=== PATIENT | male | born 1945 | race Caucasian/White ===

== ENCOUNTER → 2020-05-02 | Outpatient (CLI) | payer MEDICARE ==
--- NOTE | 2020-05-02 14:08 | REP ---
INDICATION: CHEST. COMPARISON: No comparison study. TECHNIQUE: Two views.. FINDINGS: The lungs are hyperinflated with flattening of the hemidiaphragms and increase in the AP diameter of the chest. This consistent with COPD. There is old post traumatic or post surgical deformity of the left 6th rib. There are mild degenerative changes in the thoracic spine and aorta. Heart size is normal. Pulmonary vasculature is not increased. No infiltrate is seen. Nipple silhouettes are noted bilaterally on the frontal view. No mass lesion or significant pulmonary nodule is apparent. IMPRESSION: Hyperinflation consistent with COPD. No acute cardiopulmonary disease seen.. <Electronically signed by Iglesia Musa > 05/02/20 [id number]
== END ==
LOC: M ADAMS 10:37
PROVIDERS: ATTEND Family Medicine
DX: J43.8 Other emphysema (principal); E88.01 Alpha-1-antitrypsin deficiency; G62.89 Other specified polyneuropathies; E78.5 Hyperlipidemia, unspecified; Z12.5 Encounter for screening for malignant neoplasm of prostate; Z79.899 Other long term (current) drug therapy
CPT/HCPCS: 71046; 80053; 80061; 82607; 82746; 83036; 84439; 84443; 85027; G0103

== ENCOUNTER → 2020-05-02 | Outpatient (REF) | payer MEDICARE ==
[2020-05-02 12:45] LABS: HEMATOCRIT 49.2 % (42.0-52.0); HEMOGLOBIN 15.9 g/dl (13.5-17.5); MEAN CORPUSCULAR HEMOGLOBIN 30.6 pg (27.0-33.0); MEAN CORPUSCULAR HGB CONC 32.3 g/dl (32.0-36.5); MEAN CORPUSCULAR VOLUME 94.6 fl (80.0-96.0); PLATELET COUNT, AUTOMATED 196 10^3/uL (150-450); WHITE BLOOD COUNT 9.4 10^3/uL (4.0-10.0)
[2020-05-02 13:27] LABS: HEMOGLOBIN A1c 5.1 %
[2020-05-02 13:46] LABS: ALT/SGPT 150 U/L (12-78); BILIRUBIN,TOTAL 1.4 MG/DL (0.2-1.0); BLOOD UREA NITROGEN 28 MG/DL (7-18); CALCIUM LEVEL 9.6 MG/DL (8.8-10.2); CARBON DIOXIDE LEVEL 26 MEQ/L (21-32); CHLORIDE LEVEL 105 MEQ/L (98-107); CHOLESTEROL LEVEL 194 MG/DL (<200); CHOLESTEROL RISK RATIO 3.592 (<5); CREATININE FOR GFR 1.24 MG/DL (0.70-1.30); FOLATE 13.4 NG/ML (>5.4); FREE T4 1.26 NG/DL (0.76-1.46); GLOMERULAR FILTRATION RATE > 60.0 (>42); GLUCOSE, FASTING 85 MG/DL (70-100); HDL CHOLESTEROL 54 MG/DL (>40); LDL CHOLESTEROL 116 MG/DL (<100); NON-HDL-C 140 MG/DL; POTASSIUM SERUM 5.3 MEQ/L (3.5-5.1); SODIUM LEVEL 139 MEQ/L (136-145); TRIGLYCERIDES LEVEL 121 MG/DL (<150); VITAMIN B12 LEVEL 536 PG/ML (247-911)
== END ==
LOC: M SFHCADAM 09:52
PROVIDERS: ATTEND Family Medicine
DX: E88.01 Alpha-1-antitrypsin deficiency (principal); G62.89 Other specified polyneuropathies; E78.5 Hyperlipidemia, unspecified; Z12.5 Encounter for screening for malignant neoplasm of prostate; Z79.899 Other long term (current) drug therapy
CPT/HCPCS: 80053; 80061; 82607; 82746; 83036; 84439; 84443; 85027; G0103

== ENCOUNTER → 2020-07-11 | Outpatient (CLI) | payer MEDICARE ==
--- NOTE | 2020-07-11 08:56 | REP ---
INDICATION: OTHER NONSPECIFIC ABNORMAL FINDING COMPARISON: None TECHNIQUE: Axial noncontrast images from the thoracic inlet to the upper abdomen with coronal and sagittal reformations. This CT examination was performed using the following dose reduction techniques: Automated exposure control, adjustment of mA and/or kv according to the patient's size, and use of iterative reconstruction technique. FINDINGS: Advanced COPD/emphysematous changes with scattered scarring and bronchiectasis noted throughout the bilateral lung marshall. There is a small subpleural calcification with surrounding scarring along the posterior right upper lobe which appears relatively chronic. No acute consolidation, suspicious nodule or mass lesion. No effusion. No pneumothorax. No significant adenopathy. Mediastinum demonstrates mild/moderate atherosclerotic changes to the thoracic aorta and coronary arteries without aortic aneurysm or cardiomegaly. No pericardial effusion. Surrounding musculoskeletal structures without acute osseous abnormality. Limited upper abdomen demonstrates normal bilateral adrenal glands. IMPRESSION: Advanced emphysematous disease. No acute mediastinal or pleuroparenchymal process appreciated. <Electronically signed by Kelby Barclay > 07/11/20 [id number]
== END ==
LOC: M RAD 08:06
PROVIDERS: ATTEND Physician Assistant
DX: R91.8 Other nonspecific abnormal finding of lung field (principal)

== ENCOUNTER → 2020-08-08 | Outpatient (CLI) | payer MEDICARE ==
--- NOTE | 2020-08-08 10:02 | REP ---
INDICATION: ABNORMAL RESULTS OF LIVER FUNCTION STUDIES. COMPARISON: None. TECHNIQUE: Right upper quadrant abdominal ultrasound. FINDINGS: There is a 4 mm nonmobile calcification in the gallbladder neck, likely an adherent calculus although calcified polyp is also a possibility. There is no other evidence of cholelithiasis. There is no gallbladder wall thickening or pericholecystic fluid. There is no intrahepatic or extrahepatic biliary duct dilatation. The common biliary duct measures 7 mm in diameter. The hepatic parenchyma is heterogeneous but otherwise unremarkable. This is compatible with hepato steatosis. There are limited views of the pancreatic head and body that are unremarkable. The tail of the pancreas is obscured. The pancreatic duct is not dilated. The right kidney measures 11.1 x 4.8 x 4.5 cm and is normal size. There is no right renal calculus, hydronephrosis, solid mass or cystic mass. There is no abdominal right upper quadrant free fluid. IMPRESSION: There is a nonmobile calcification in the gallbladder neck, likely an adherent calculus versus a calcified polyp, measuring 4 mm in diameter. The tail of the pancreas is obscured. The hepatic parenchyma is heterogeneous compatible with hepato steatosis. There are no hepatic masses or cysts. <Electronically signed by Ivan Meyer > 08/08/20 [id number]
== END ==
LOC: M RAD 09:02
PROVIDERS: ATTEND Family Medicine
DX: R94.5 Abnormal results of liver function studies (principal); K80.20 Calculus of gallbladder without cholecystitis without obstruction

== ENCOUNTER → 2021-01-09 | Outpatient (CLI) | payer MEDICARE ==
--- NOTE | 2021-01-09 11:38 | REP ---
INDICATION: DEGENERATION. COMPARISON: None. TECHNIQUE: Five views of the lumbar spine. FINDINGS: Lumbar vertebral body heights are preserved. There is straightening of the normal lumbar lordosis. Alignment is otherwise normal. There is diffuse degenerative disc disease. Disc space narrowing and some spurring is noted at each lumbar level. This is most pronounced at L5-S1 where there is a vacuum phenomenon, and at L1-2 where there is prominent anterior spurring. Vascular calcifications noted in a normal caliber aorta. Sacrum and SI joints are intact. Pedicles and posterior elements are intact. There is no evidence of spondylolysis or spondylolisthesis. Psoas margins are symmetric. Normal bowel gas pattern. 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 No acute bony abnormality. Straightening. <Electronically signed by Iglesia Musa > 01/09/21 [id number]
== END ==
LOC: M ADAMS 09:12
PROVIDERS: ATTEND Family Medicine
DX: M51.37 Other intervertebral disc degeneration, lumbosacral region (principal)

== ENCOUNTER → 2021-01-15 | Outpatient (CLI) | payer MEDICARE ==
--- NOTE | 2021-01-15 10:34 | REP ---
INDICATION: PERINEURAL CYST. COMPARISON: None. TECHNIQUE: AP pelvis. FINDINGS: There is no acute fracture, dislocation or intrinsic bone disease. There mild symmetrical degenerative changes at the hip joints. IMPRESSION: Mild degenerative changes bilateral hips. <Electronically signed by Ivan Zheng > 01/15/21 [id number]
--- NOTE | 2021-01-15 10:35 | REP ---
INDICATION: PERINEURAL CYST. COMPARISON: None. TECHNIQUE: AP and lateral views sacrum and coccyx. FINDINGS: There is no evidence of acute fracture or dislocation. No intrinsic osseous pathology is seen. There is mild sclerosis along both sacroiliac joints. IMPRESSION: No fracture or dislocation. Mild sclerosis along sacroiliac joints bilaterally. <Electronically signed by Ivan Zheng > 01/15/21 [id number]
== END ==
LOC: M SOG 09:22
PROVIDERS: ATTEND Orthopaedic Surgery
DX: G96.191 Perineural cyst (principal)

== ENCOUNTER → 2021-01-25 | Outpatient (REF) | payer MEDICARE ==
[2021-01-25 12:42] LABS: BLOOD UREA NITROGEN 16 MG/DL (7-18); CALCIUM LEVEL 9.3 MG/DL (8.8-10.2); CARBON DIOXIDE LEVEL 28 MEQ/L (21-32); CHLORIDE LEVEL 106 MEQ/L (98-107); CREATININE FOR GFR 1.07 MG/DL (0.70-1.30); GLOMERULAR FILTRATION RATE > 60.0 (>42); GLUCOSE, FASTING 98 MG/DL (70-100); POTASSIUM SERUM 5.1 MEQ/L (3.5-5.1); SODIUM LEVEL 139 MEQ/L (136-145)
== END ==
LOC: M SFHCADAM 08:34
PROVIDERS: ATTEND Family Medicine
DX: M51.37 Other intervertebral disc degeneration, lumbosacral region (principal)

== ENCOUNTER → 2021-01-26 | Outpatient (CLI) | payer MEDICARE ==
--- NOTE | 2021-01-26 11:23 | REP ---
INDICATION: DISC DEGENERATION. COMPARISON: Comparison is made with outside prior imaging from March 30, 2019. Comparison radiographs of the lumbar spine are from January 09, 2021. TECHNIQUE: Sagittal and axial T1 and T2 weighted scans are included with without fat saturation in the usual fashion. 17 mL of intravenous ProHance is administered and post gadolinium enhanced T1 weighted fat sat sagittal and T1 weighted post tip axial images are acquired. FINDINGS: There is straightening of the normal lumbar lordosis. There are large perineural cysts in the sacrum from the 1st sacral segment to the bottom of the 3rd sacral segment. These are unchanged. In addition, there is evidence of a caudally positioned conus medullaris. The tip of the conus terminates at the L2-3 disc. There is mild fatty infiltration of the filum terminale. Mild tethered cord configuration. These findings are unchanged. Normal caliber aorta. No extra vertebral abnormality is appreciated. Axial and sagittal images taken at L1-2 demonstrate diffuse disc bulging. There is degenerative disc narrowing and decreased signal intensity. Some posterior osteophytic ridging is seen. This indents the ventral margin of the thecal sac but there is no spinal stenosis or foraminal narrowing. At L2-3, there is degenerative disc narrowing again noted with posterior osteophytic ridging. No spinal stenosis or foraminal stenosis is seen. Findings at L2-3 are unchanged. At L3-4, there is diffuse disc bulging and posterior osteophytic ridging as well. This disc is narrowed and shows decreased signal intensity also. No spinal stenosis is seen. No neural foraminal narrowing is observed. At the L4-5 disc level there is a a small central broad-based disc protrusion with posterior osteophytic ridging indenting the thecal sac. No spinal stenosis is seen. There is facet hypertrophy bilaterally. There is no nerve root compression. At L5-S1, there is degenerative disc narrowing and desiccation. Mild posterior osteophytic ridging is seen and and diffuse mild disc bulging is noted. There is minimal neural foraminal narrowing bilaterally at L5-S1. These findings are unchanged. Post gadolinium enhanced images show no suspicious gadolinium enhancement. There is minimal discogenic enhancement. 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 <Electronically signed by Iglesia Musa > 01/26/21 [id number]
== END ==
LOC: M PLARAD 09:18
PROVIDERS: ATTEND Family Medicine
DX: M51.37 Other intervertebral disc degeneration, lumbosacral region (principal)

== ENCOUNTER → 2021-04-11 | Outpatient (REF) | payer MEDICARE ==
[2021-04-11 12:51] LABS: HEMATOCRIT 45.8 % (42.0-52.0); MEAN CORPUSCULAR HGB CONC 32.8 g/dl (32.0-36.5); MEAN CORPUSCULAR VOLUME 94.6 fl (80.0-96.0); PLATELET COUNT, AUTOMATED 190 10^3/uL (150-450); RED BLOOD COUNT 4.84 10^6/uL (4.30-6.10); WHITE BLOOD COUNT 9.7 10^3/uL (4.0-10.0)
[2021-04-11 13:03] LABS: PROTHROMBIN TIME 13.6 SECONDS (12.7-14.5)
[2021-04-11 13:28] LABS: ALBUMIN 3.8 GM/DL (3.2-5.2); ALT/SGPT 47 U/L (12-78); BILIRUBIN,TOTAL 0.6 MG/DL (0.2-1.0); BLOOD UREA NITROGEN 16 MG/DL (7-18); CALCIUM LEVEL 9.7 MG/DL (8.8-10.2); CARBON DIOXIDE LEVEL 27 MEQ/L (21-32); CHLORIDE LEVEL 107 MEQ/L (98-107); CHOLESTEROL LEVEL 186 MG/DL (<200); CHOLESTEROL RISK RATIO 4.769 (<5); CREATININE FOR GFR 1.09 MG/DL (0.70-1.30); GLOMERULAR FILTRATION RATE > 60.0 (>42); GLUCOSE, FASTING 99 MG/DL (70-100); HDL CHOLESTEROL 39 MG/DL (>40); LDL CHOLESTEROL 104 MG/DL (<100); NON-HDL-C 147 MG/DL; POTASSIUM SERUM 4.9 MEQ/L (3.5-5.1); SODIUM LEVEL 139 MEQ/L (136-145); TOTAL PROTEIN 8.3 GM/DL (6.4-8.2); TRIGLYCERIDES LEVEL 214 MG/DL (<150)
== END ==
LOC: M SFHCADAM 08:55
PROVIDERS: ATTEND Family Medicine
DX: K74.69 Other cirrhosis of liver (principal); M72.0 Palmar fascial fibromatosis [Dupuytren]; E78.5 Hyperlipidemia, unspecified; Z12.5 Encounter for screening for malignant neoplasm of prostate
CPT/HCPCS: 80053; 80061; 85027; 85610; G0103

== ENCOUNTER → 2021-05-15 | Outpatient (CLI) | payer MEDICARE | LOC: M PAIN 11:00 | PROVIDERS: ATTEND Anesthesiology | DX: M51.16 Intervertebral disc disorders with radiculopathy, lumbar region (principal); M53.3 Sacrococcygeal disorders, not elsewhere classified; M54.50 Low back pain, unspecified; G62.9 Polyneuropathy, unspecified; K76.0 Fatty (change of) liver, not elsewhere classified; M72.0 Palmar fascial fibromatosis [Dupuytren]; Z79.891 Long term (current) use of opiate analgesic; Z79.899 Other long term (current) drug therapy | CPT/HCPCS: 76000; G0463 ==

== ENCOUNTER → 2021-07-20 | Outpatient (CLI) | payer MEDICARE | LOC: M PLAIMG 07:56 | PROVIDERS: ATTEND Anesthesiology | DX: M53.3 Sacrococcygeal disorders, not elsewhere classified (principal); L05.91 Pilonidal cyst without abscess ==

== ENCOUNTER → 2021-08-02 | Outpatient (CLI) | payer MEDICARE | LOC: M RAD 08:21 | PROVIDERS: ATTEND Physician Assistant | DX: Z12.2 Encounter for screening for malignant neoplasm of respiratory organs (principal); Z87.891 Personal history of nicotine dependence ==

== ENCOUNTER → 2021-08-24 | Outpatient (CLI) | payer MEDICARE ==
[~2021-08-24] MED LIST: FLUT1BLS8 IH; GABA600T4 PO; HYDR-3713 PO; TREL1AER PO
== END ==
LOC: M LABSMTC 10:00
PROVIDERS: ATTEND Anesthesiology
DX: Z01.812 Encounter for preprocedural laboratory examination (principal); Z20.822 Contact with and (suspected) exposure to COVID-19

== ENCOUNTER → 2021-10-05 | Outpatient (CLI) | payer MEDICARE | LOC: M LABSMTC 09:03 | PROVIDERS: ATTEND Anesthesiology | DX: Z01.812 Encounter for preprocedural laboratory examination (principal) ==

== ENCOUNTER → 2021-10-09 | Outpatient (CLI) | payer MEDICARE ==
[~2021-10-09] MED LIST changes: +BUPIVACAINE HCL 0.25% 30ML VIAL As Ordered ONE; +ISOVUE-M 300 61% 15ML VIAL As Ordered ONE; +LIDOCAINE 1% SDV 30ML VIAL As Ordered ONE; +NORCO, ANEXSIA 5/325MG TABLET (HYDROcodone/ACETAMINOPHEN) As Ordered ONE; +TRIAMCINOLONE ACETONIDE SUSP 40 MG/ML VIAL (J3301) As Ordered ONE; +diazePAM 2 MG TAB As Ordered ONE
[2021-10-09 10:32] VITALS: BP 146/82
== END ==
LOC: M IRPRO 08:49
PROVIDERS: ATTEND Anesthesiology
DX: M46.1 Sacroiliitis, not elsewhere classified (principal); G89.29 Other chronic pain; J44.9 Chronic obstructive pulmonary disease, unspecified; M19.90 Unspecified osteoarthritis, unspecified site
CPT/HCPCS: G0260; J3301; Q9967

== ENCOUNTER → 2021-11-13 | Outpatient (CLI) | payer MEDICARE ==
[~2021-11-13] MED LIST changes: -BUPIVACAINE HCL 0.25% 30ML VIAL As Ordered ONE; -ISOVUE-M 300 61% 15ML VIAL As Ordered ONE; -LIDOCAINE 1% SDV 30ML VIAL As Ordered ONE; -NORCO, ANEXSIA 5/325MG TABLET (HYDROcodone/ACETAMINOPHEN) As Ordered ONE; -TRIAMCINOLONE ACETONIDE SUSP 40 MG/ML VIAL (J3301) As Ordered ONE; -diazePAM 2 MG TAB As Ordered ONE
== END ==
LOC: M SOG 07:49
PROVIDERS: ATTEND Orthopaedic Surgery Hand Surgery
DX: M79.641 Pain in right hand (principal)

== ENCOUNTER → 2021-11-26 | Outpatient (CLI) | payer MEDICARE | LOC: M LABSMTC 11:21 | PROVIDERS: ATTEND Anesthesiology | DX: Z11.52 Encounter for screening for COVID-19 (principal); Z20.822 Contact with and (suspected) exposure to COVID-19 ==

== ENCOUNTER 2021-12-14 06:26 | Day surgery (SDC) | payer MEDICARE ==
[~2021-12-14] VITALS: Ht 182.9 cm; Wt 85.3 kg
[2021-12-14] MEDS ORDERED: ceFAZolin SOD 2 GM in IV 1 EA IV ONE (06:50)
[2021-12-14] MEDS ORDERED: LR 1,000 ML IV SCH ×3 (07:05→09:35)
[2021-12-14] MEDS ORDERED: LIDOCAINE 2% 100MG/5ML SDV (FOR ANES.) As Ordered ONE (07:17)
[2021-12-14] MEDS ORDERED: propofoL 200 MG/20 ML VIAL As Ordered ONE (07:17)
[2021-12-14] MEDS ORDERED: dexameTHASONE 4 MG/ML 1ML VIAL (J1100 PER 1MG) As Ordered ONE (07:18)
[2021-12-14] MEDS ORDERED: ONDANSETRON 4MG 2ML VIAL As Ordered ONE (07:18)
[2021-12-14] MEDS ORDERED: fentaNYL 100 MCG/2 ML INJECTION As Ordered ONE (07:18)
[2021-12-14] MEDS ORDERED: BUPIVACAINE HCL 0.5% 30ML VIAL As Ordered ONE (07:42)
[2021-12-14] MEDS ORDERED: POLYSPORIN OPHTH OINT 3.5 GM As Ordered ONE (09:02)
[2021-12-14] MEDS ORDERED: POLYSPORIN TOPICAL OINTMENT 15GM As Ordered ONE (09:03)
[2021-12-14] MEDS ORDERED: KETOROLAC 60MG 2ML VIAL As Ordered ONE (09:05)
[2021-12-14] MEDS ORDERED: TRAM50TA2 PO (09:27)
[2021-12-14] MEDS ORDERED: oxyCODONE 5MG TAB PO PRN (09:35)
[2021-12-14] MEDS ORDERED: fentaNYL 100 MCG/2 ML INJECTION IV PRN (09:35)
[2021-12-14] MEDS ORDERED: MORPHINE 2 MG/ML 1ML VIAL IV PRN (09:35)
[2021-12-14 10:27] VITALS: BP 142/68
== END 2021-12-14 10:42 | disposition home or self-care (01) ==
LOC: M SDC 06:26
PROVIDERS: ATTEND Orthopaedic Surgery Hand Surgery
DX: M72.0 Palmar fascial fibromatosis [Dupuytren] (principal); J44.9 Chronic obstructive pulmonary disease, unspecified; Z79.899 Other long term (current) drug therapy; Z87.891 Personal history of nicotine dependence
CPT/HCPCS: 26123; 26125; 87635; 88304; J0690; J1100; J1885; J2405; J3010

== ENCOUNTER → 2022-05-07 | Outpatient (REF) | payer MEDICARE ==
[~2022-05-07] MED LIST changes: +TRAM50TA2 PO
[2022-05-07 13:03] LABS: HEMATOCRIT 48.4 % (42.0-52.0); HEMOGLOBIN 15.4 g/dl (13.5-17.5); MEAN CORPUSCULAR HEMOGLOBIN 30.7 pg (27.0-33.0); MEAN CORPUSCULAR HGB CONC 31.8 g/dl (32.0-36.5); MEAN CORPUSCULAR VOLUME 96.4 fl (80.0-96.0); PLATELET COUNT, AUTOMATED 288 10^3/uL (150-450); RED BLOOD COUNT 5.02 10^6/uL (4.30-6.10); WHITE BLOOD COUNT 7.7 10^3/uL (4.0-10.0)
[2022-05-07 13:15] LABS: INR 1.02; PROTHROMBIN TIME 13.6 SECONDS (12.5-14.5)
[2022-05-07 13:32] LABS: ALBUMIN 3.6 G/DL (3.2-5.2); ALKALINE PHOSPHATASE 114 U/L (46-116); ALT/SGPT 29 U/L (7.0-40); AST/SGOT 42 U/L (<34); BILIRUBIN,TOTAL 0.6 MG/DL (0.3-1.2); BLOOD UREA NITROGEN 18 MG/DL (9-23); CALCIUM LEVEL 9.3 MG/DL (8.3-10.6); CARBON DIOXIDE LEVEL 22 MMOL/L (20-31); CHLORIDE LEVEL 102 MMOL/L (98-107); CHOLESTEROL LEVEL 154 MG/DL (<200); CHOLESTEROL RISK RATIO 3.89 (<5); GLOMERULAR FILTRATION RATE > 60.0 (>42); GLUCOSE, FASTING 90 MG/DL (74-106); HDL CHOLESTEROL 39.5 MG/DL (>40); LDL CHOLESTEROL 89.1 MG/DL (<100); NON-HDL-C 115 MG/DL; POTASSIUM SERUM 4.6 MMOL/L (3.5-5.1); SODIUM LEVEL 137 MMOL/L (136-145); TOTAL PROTEIN 7.9 G/DL (5.7-8.2); TRIGLYCERIDES LEVEL 127 MG/DL (<150)
== END ==
LOC: M SFHCADAM 08:13
PROVIDERS: ATTEND Family Medicine
DX: E78.5 Hyperlipidemia, unspecified (principal); Z12.5 Encounter for screening for malignant neoplasm of prostate; K74.69 Other cirrhosis of liver
CPT/HCPCS: 80053; 80061; 85027; 85610; G0103

== ENCOUNTER → 2022-08-05 | Outpatient (CLI) | payer OTHER | LOC: M RAD 06:24 | PROVIDERS: ATTEND Physician Assistant | DX: R91.8 Other nonspecific abnormal finding of lung field (principal); Z87.891 Personal history of nicotine dependence ==

== ENCOUNTER → 2023-06-09 | Outpatient (REF) | payer OTHER ==
[2023-06-09 15:25] LABS: HEMOGLOBIN 16.1 g/dl (13.5-17.5); MEAN CORPUSCULAR HEMOGLOBIN 31.9 pg (27.0-33.0); MEAN CORPUSCULAR HGB CONC 32.9 g/dl (32.0-36.5); MEAN CORPUSCULAR VOLUME 97.2 fl (80.0-96.0); PLATELET COUNT, AUTOMATED 179 10^3/uL (150-450); RED BLOOD COUNT 5.04 10^6/uL (4.30-6.10)
[2023-06-09 15:48] LABS: FREE T4 1.12 NG/DL (0.89-1.76); THYROID STIMULATING HORMONE 2.895 uIU/ML (0.55-4.78)
[2023-06-09 15:49] LABS: VITAMIN B12 LEVEL 459 PG/ML (211-911)
[2023-06-09 15:51] LABS: ALBUMIN 3.6 G/DL (3.2-5.2); ALKALINE PHOSPHATASE 90 U/L (46-116); ALT/SGPT 32 U/L (7.0-40); AST/SGOT 35 U/L (<34); BILIRUBIN,TOTAL 0.9 MG/DL (0.3-1.2); BLOOD UREA NITROGEN 13 MG/DL (9-23); CARBON DIOXIDE LEVEL 26 MMOL/L (20-31); CHLORIDE LEVEL 106 MMOL/L (98-107); CHOLESTEROL LEVEL 168 MG/DL (<200); CHOLESTEROL RISK RATIO 4.55 (<5); CREATININE FOR GFR 0.94 MG/DL (0.70-1.30); GLOMERULAR FILTRATION RATE > 60.0 (>42); GLUCOSE, FASTING 105 MG/DL (74-106); HDL CHOLESTEROL 36.9 MG/DL (>40); LDL CHOLESTEROL 101.7 MG/DL (<100); NON-HDL-C 131.1 MG/DL; SODIUM LEVEL 139 MMOL/L (136-145); TOTAL PROTEIN 7.3 G/DL (5.7-8.2); TRIGLYCERIDES LEVEL 147 MG/DL (<150)
[2023-06-09 16:03] LABS: HEMOGLOBIN A1c 5.2 % (4.0-6.0)
== END ==
LOC: M SFHCADAM 07:49
PROVIDERS: ATTEND Family Medicine
DX: G62.9 Polyneuropathy, unspecified (principal); K74.69 Other cirrhosis of liver; E78.5 Hyperlipidemia, unspecified; Z79.899 Other long term (current) drug therapy

== ENCOUNTER → 2023-09-18 | Outpatient (CLI) | payer OTHER | LOC: M RAD 09:55 | PROVIDERS: ATTEND Physician Assistant | DX: Z87.891 Personal history of nicotine dependence (principal); R91.8 Other nonspecific abnormal finding of lung field ==

== ENCOUNTER 2023-11-22 17:40 | Emergency (ER) | payer OTHER ==
[~2023-11-22] VITALS: Ht 180.3 cm; Wt 77.4 kg
[2023-11-22] MEDS ORDERED: PROT1TAB2 PO (19:40)
[2023-11-22 19:56] VITALS: BP 153/95; TEMP 97.8; O2SAT 96
== END 2023-11-22 19:58 | disposition home or self-care (01) ==
LOC: M ED 17:40
DX: T18.128A Food in esophagus causing other injury, initial encounter (principal); J44.9 Chronic obstructive pulmonary disease, unspecified; Z79.1 Long term (current) use of non-steroidal anti-inflammatories (NSAID); Z79.899 Other long term (current) drug therapy

== ENCOUNTER → 2023-12-29 | Outpatient (REF) | payer OTHER ==
[~2023-12-29] MED LIST changes: +PROT1TAB2 PO
[2023-12-29 12:19] LABS: HEMATOCRIT 48.5 % (42.0-52.0); HEMOGLOBIN 16.2 g/dl (13.5-17.5); MEAN CORPUSCULAR HEMOGLOBIN 31.9 pg (27.0-33.0); MEAN CORPUSCULAR HGB CONC 33.4 g/dl (32.0-36.5); MEAN CORPUSCULAR VOLUME 95.5 fl (80.0-96.0); PLATELET COUNT, AUTOMATED 213 10^3/uL (150-450); RED BLOOD COUNT 5.08 10^6/uL (4.30-6.10); WHITE BLOOD COUNT 11.1 10^3/uL (4.0-10.0)
[2023-12-29 12:20] LABS: INR 1.15; PROTHROMBIN TIME 14.3 SECONDS (12.5-14.5)
[2023-12-29 12:43] LABS: ALBUMIN 4.1 G/DL (3.2-5.2); ALKALINE PHOSPHATASE 120 U/L (46-116); ALT/SGPT 30 U/L (7.0-40); AST/SGOT 37 U/L (<34); BLOOD UREA NITROGEN 17 MG/DL (9-23); CALCIUM LEVEL 9.6 MG/DL (8.3-10.6); CARBON DIOXIDE LEVEL 27 MMOL/L (20-31); CHLORIDE LEVEL 104 MMOL/L (98-107); CHOLESTEROL LEVEL 178 MG/DL (<200); CHOLESTEROL RISK RATIO 4.06 (<5); CREATININE FOR GFR 0.98 MG/DL (0.70-1.30); GLOMERULAR FILTRATION RATE > 60.0 (>42); GLUCOSE, FASTING 84 MG/DL (74-106); HDL CHOLESTEROL 43.8 MG/DL (>40); LDL CHOLESTEROL 107.6 MG/DL (<100); NON-HDL-C 134.2 MG/DL; POTASSIUM SERUM 4.9 MMOL/L (3.5-5.1); SODIUM LEVEL 137 MMOL/L (136-145); TOTAL PROTEIN 8.4 G/DL (5.7-8.2); TRIGLYCERIDES LEVEL 133 MG/DL (<150)
[2023-12-29 13:12] LABS: HEMOGLOBIN A1c 5.2 % (4.0-6.0)
== END ==
LOC: M SFHCADAM 09:56
PROVIDERS: ATTEND Family Medicine
DX: K22.4 Dyskinesia of esophagus (principal); E88.01 Alpha-1-antitrypsin deficiency; K74.69 Other cirrhosis of liver; E78.5 Hyperlipidemia, unspecified; Z79.899 Other long term (current) drug therapy

== ENCOUNTER 2024-01-13 09:33 | Day surgery (SDC) | payer OTHER ==
[~2024-01-13] VITALS: Ht 180.3 cm; Wt 79.0 kg
[~2024-01-13 09:33] MED LIST changes: +GABA-1490 PO; -GABA600T4 PO; +PANT40TA29 PO
[2024-01-13] MEDS: NS 1,000 ML IV ONE (10:15)
[2024-01-13] MEDS ORDERED: propofoL 200 MG/20 ML VIAL As Ordered ONE (10:26)
[2024-01-13] MEDS ORDERED: fentaNYL 100 MCG/2 ML INJECTION As Ordered ONE (10:26)
[2024-01-13] MEDS ORDERED: LIDOCAINE 2% 100MG/5ML SDV (FOR ANES.) As Ordered ONE (10:26)
[2024-01-13 11:08] VITALS: BP 119/67; TEMP 97.2; O2SAT 98
== END 2024-01-13 11:40 | disposition home or self-care (01) ==
LOC: M OPP 09:33
PROVIDERS: ATTEND Surgery
DX: K31.89 Other diseases of stomach and duodenum (principal); R13.10 Dysphagia, unspecified; K29.70 Gastritis, unspecified, without bleeding; J44.9 Chronic obstructive pulmonary disease, unspecified; Z79.51 Long term (current) use of inhaled steroids; Z79.891 Long term (current) use of opiate analgesic
CPT/HCPCS: 43239; 88305; J3010

== ENCOUNTER → 2024-04-22 | Outpatient (REF) | payer OTHER ==
[2024-04-22 17:02] LABS: BASO % 0.4 % (0.0-1.0); EOS # 0.1 10^3/uL (0.0-0.5); EOS % 1.2 % (0.0-3.0); HEMATOCRIT 48.7 % (42.0-52.0); HEMOGLOBIN 15.7 g/dl (13.5-17.5); LYMPH # 2.7 10^3/uL (1.5-5.0); LYMPH % 29.9 % (24.0-44.0); MEAN CORPUSCULAR HEMOGLOBIN 30.8 pg (27.0-33.0); MEAN CORPUSCULAR HGB CONC 32.2 g/dl (32.0-36.5); MEAN CORPUSCULAR VOLUME 95.5 fl (80.0-96.0); MONO # 0.7 10^3/uL (0.0-0.8); NEUTROPHILS # 5.4 10^3/uL (1.5-8.5); NEUTROPHILS % 60.2 % (36.0-66.0); PLATELET COUNT, AUTOMATED 223 10^3/uL (150-450); WHITE BLOOD COUNT 9.1 10^3/uL (4.0-10.0)
[2024-04-22 17:16] LABS: INR 1.1; PARTIAL THROMBOPLASTIN TIME 32.6 SECONDS (24.8-34.2); PROTHROMBIN TIME 14.5 SECONDS (12.5-14.5)
[2024-04-22 17:20] LABS: ALKALINE PHOSPHATASE 117 U/L (40-129); ALT/SGPT 30 U/L (7.0-40); AST/SGOT 43 U/L (<34); BILIRUBIN,TOTAL 0.7 MG/DL (0.3-1.2); BLOOD UREA NITROGEN 17 MG/DL (9-23); CALCIUM LEVEL 9.9 MG/DL (8.3-10.6); CARBON DIOXIDE LEVEL 28 MMOL/L (20-31); CHLORIDE LEVEL 102 MMOL/L (98-107); CREATININE FOR GFR 0.99 MG/DL (0.70-1.30); GLOMERULAR FILTRATION RATE > 60.0 (>42); GLUCOSE, FASTING 89 MG/DL (74-106); SODIUM LEVEL 138 MMOL/L (136-145); TOTAL PROTEIN 8.6 G/DL (5.7-8.2)
== END ==
LOC: M SFHCADAM 11:08
PROVIDERS: ATTEND Physician Assistant
DX: K62.5 Hemorrhage of anus and rectum (principal); K74.69 Other cirrhosis of liver

== ENCOUNTER 2024-05-19 09:40 | Day surgery (SDC) | payer MEDICARE ==
[~2024-05-19] VITALS: Ht 180.3 cm; Wt 77.1 kg
[2024-05-19] MEDS ORDERED: propofoL 200 MG/20 ML VIAL As Ordered ONE (12:11)
[2024-05-19] MEDS ORDERED: LIDOCAINE 2% 100MG/5ML SDV (FOR ANES.) As Ordered ONE (12:11)
[2024-05-19 12:43] VITALS: TEMP 97
[2024-05-19 13:08] VITALS: BP 131/76; O2SAT 98
== END 2024-05-19 13:24 | disposition home or self-care (01) ==
LOC: M OPP 09:40
PROVIDERS: ATTEND Surgery
DX: K92.1 Melena (principal); Z79.891 Long term (current) use of opiate analgesic; Z79.899 Other long term (current) drug therapy; J44.9 Chronic obstructive pulmonary disease, unspecified

== ENCOUNTER → 2024-12-09 | Outpatient (REF) | payer MEDICARE ==
[2024-12-09 13:01] LABS: PLATELET COUNT, AUTOMATED 251 10^3/uL (150-450)
[2024-12-09 13:03] LABS: ALT/SGPT 28.0 U/L (7.0-40); AST/SGOT 38.0 U/L (<34); CALCIUM LEVEL 8.9 MG/DL (8.3-10.6); CARBON DIOXIDE LEVEL 26.0 MMOL/L (20-31); CHLORIDE LEVEL 104.0 MMOL/L (98-107); CHOLESTEROL LEVEL 168.0 MG/DL (<200); CHOLESTEROL RISK RATIO 4.03 (<5); CREATININE FOR GFR 0.98 MG/DL (0.70-1.30); GLOMERULAR FILTRATION RATE 78.4 (>42); LDL CHOLESTEROL 97.8 MG/DL (<100); NON-HDL-C 126.4 MG/DL; POTASSIUM SERUM 4.7 MMOL/L (3.5-5.1); PSA SCREENING 0.35 NG/ML (< 4.00); SODIUM LEVEL 140.0 MMOL/L (136-145); TRIGLYCERIDES LEVEL 143.0 MG/DL (<150)
[2024-12-09 13:04] LABS: FREE T4 1.12 NG/DL (0.89-1.76); INR 1.05
[2024-12-09 13:05] LABS: VITAMIN B12 LEVEL 390.0 PG/ML (211-911)
== END ==
LOC: M SFHCADAM 08:00
PROVIDERS: ATTEND Family Medicine
DX: E88.01 Alpha-1-antitrypsin deficiency (principal); E78.5 Hyperlipidemia, unspecified; G62.89 Other specified polyneuropathies; Z12.5 Encounter for screening for malignant neoplasm of prostate; K74.69 Other cirrhosis of liver
CPT/HCPCS: 80053; 80061; 82607; 82746; 84439; 84443; 85027; 85610; G0103

== ENCOUNTER 2025-02-09 10:07 | Emergency (ER) | payer MEDICARE ==
[~2025-02-09] VITALS: Ht 177.8 cm; Wt 72.7 kg
[2025-02-09] MEDS ORDERED: FOLI1TAB11 (10:33)
[2025-02-09] MEDS ORDERED: PREG25CA3 (10:33)
[2025-02-09 12:04] VITALS: BP 128/88; TEMP 97.1; O2SAT 97
== END 2025-02-09 12:05 | disposition home or self-care (01) ==
LOC: M ED 10:07 → EDBD 10:07 → M ED 12:05
DX: I83.891 Varicose veins of right lower extremity with other complications (principal); K21.9 Gastro-esophageal reflux disease without esophagitis; J44.9 Chronic obstructive pulmonary disease, unspecified; Z87.891 Personal history of nicotine dependence; Z79.1 Long term (current) use of non-steroidal anti-inflammatories (NSAID); Z79.899 Other long term (current) drug therapy